=== PATIENT | female | born 1985 | race Hispanic/Latino ===

== ENCOUNTER → 2022-07-26 10:43 | Outpatient (CLI) | payer BC, SELFPAY ==
--- NOTE | ~2022-07-26 | MR_ITS ---
EXAMINATION: MR knee LT wo con DATE: 07/26/2022 11:23 INDICATION: Chronic left knee pain, possible meniscal tear. TECHNIQUE: Magnetic resonance imaging (MRI) of the knee was performed without intravenous contrast. S equences included axial PD-weighted FS FSE, coronal PD-weighted FSE and PD-weighted FS FSE, sagittal PD-weighted FSE, and sagittal T2-weighted FS FSE. COMPARISON: None. FINDINGS: Medial compartment: Subtle irregularity along the undersurface of the body of the medial meniscus. Mild cartilage thinnin g. Mild osteophytosis and subchondral sclerosis. Lateral compartment: Meniscus and cartilage intact. Mild osteophytosis. Patellofemoral compartment: Patellar cartilage and retinacula intact. Ligaments and tendons: The ACL, PCL, MCL, and LCL are intact. The remaining flexor and extensor tendons are intact and sydnie l in appearance. Fluid: Small volume joint fluid. Small Buck's cyst. Osseous/other: No suspicious focal or diffuse marrow signal. IMPRESSION: 1. Focal oblique undersurface tear of the body of the medial meniscus. 2. Mild degenerative changes. 3. Small knee joint effusion. Reviewed, dictated and finalized at location K[facility]
== END ==
PROVIDERS: PCP Family Medicine; Visit Provider Orthopaedic Surgery
DX: M25.462 Effusion, left knee (principal); M17.12 Unilateral primary osteoarthritis, left knee
CPT/HCPCS: 73721